=== PATIENT | male | born 1980 | race Caucasian/White ===

== ENCOUNTER 2016-12-07 19:38 | Emergency (ER) | payer BC ==
[~2016-12-07] VITALS: Ht 182.9 cm; Wt 65.0 kg
[2016-12-07 19:39] VITALS: BP 137/93; PULSE 131; RESP 18; TEMP 99.2; O2SAT 96
--- NOTE | 2016-12-07 20:28 | PD ---
Physical Exam Date Seen by Provider: Dec 07, 2016 Time Seen by Provider: 20:26 Data Data Last Documented VS Vital Signs Date Time Temp Pulse Resp B/P Pulse Ox O2 Delivery O2 Flow Rate FiO2 12/07/16 19:39 99.2 131 18 137/93 96 Room Air [facility] Supervised Visit with ADALID: No Narrative Course 36 YO M requesting voluntary psych evaluation. Denies SI. Vitals reviewed. Awaiting bed placement. Myesha Chen Dec 07, 2016 20:28
[2016-12-07 20:54] VITALS: BP 132/89; PULSE 117; RESP 15; O2SAT 96
[2016-12-07] MEDS ORDERED: SODIUM CHLOR 0.9% 1000 ML INJ 1,000 ML IV ONE (21:00)
[2016-12-07] MEDS ORDERED: LORazepam 2 MG/ML VIAL IV ONE (21:00)
[2016-12-07 21:36] LABS: AUTOMATED NEUTROPHIL # 8.8 TH/MM3 (1.8-7.7); BASOPHIL # 0.1 TH/MM3 (0-0.2); BASOPHIL % 0.7 % (0.0-2.0); EOSINOPHIL # 0.2 TH/MM3 (0-0.4); EOSINOPHIL % 1.2 % (0.0-4.0); HEMATOCRIT 48.5 % (39.0-51.0); LYMPH % 22.6 % (9.0-44.0); LYMPHOCYTE # 2.8 TH/MM3 (1.0-4.8); MEAN CELL VOLUME 101.5 FL (80.0-100.0); MEAN CORPUSCULAR HEMOGLOBIN 35.3 PG (27.0-34.0); MEAN CORPUSCULAR HGB CONC 34.8 % (32.0-36.0); MONO % 4.6 % (0.0-8.0); NEUT % 70.9 % (16.0-70.0); PLATELET COUNT 291 TH/MM3 (150-450); RED BLOOD COUNT 4.77 MIL/MM3 (4.50-5.90); RED CELL DISTRIBUTION WIDTH 12.3 % (11.6-17.2); WHITE BLOOD COUNT 12.5 TH/MM3 (4.0-11.0)
[2016-12-07 21:46] LABS: HEMO FLAGS DIFF FINAL
[2016-12-07 21:49] LABS: ALT (GPT) 48 U/L (12-78); ANION GAP 9 MEQ/L (5-15); AST (GOT) 48 U/L (15-37); BICARBONATE 25.4 MEQ/L (21.0-32.0); BLOOD UREA NITROGEN 12 MG/DL (7-18); CHLORIDE 104 MEQ/L (98-107); GLOMERULAR FILTRATION RATE 80 ML/MIN (>89); SODIUM (NA) 138 MEQ/L (136-145)
[2016-12-07 21:50] LABS: POTASSIUM 4.6 MEQ/L (3.5-5.1)
[2016-12-07 21:51] LABS: ALKALINE PHOSPHATASE 91 U/L (45-117)
--- NOTE | 2016-12-07 22:09 | PD ---
HPI Chief Complaint: Psychiatric Symptoms Time Seen by Provider: 20:48 Travel History International Travel<30 days: No Contact w/Intl Traveler<30days: No Traveled to known affect area: No History of Present Illness HPI Patient is a 36-year-old male brought in by his friends because they are worried he is going to kill himself. He states he has been drinking heavily for the past few years. He says he has been depressed for the past 13 years. He says he does want to kill himself. He told the nurse he has a gun at home and he will kill himself. He has no medical complaints at this time. [facility] Past Medical History Medical History: Denies Significant Hx ?: Not Past Surgical History Surgical History: No Previous Surgery Social History Alcohol Use: Yes Tobacco Use: Yes Substance Use: No Allergies-Medications (Allergen,Severity, Reaction): Coded Allergies: Amoxicillin (Verified Allergy, Unknown, 12/07/16) Erythromycin (Verified Allergy, Unknown, 12/07/16) Penicillin (Verified Allergy, Unknown, 12/07/16) Sulfa (Verified Allergy, Unknown, 12/07/16) Reported Meds & Prescriptions Reported Meds & Active Scripts Active No Active Prescriptions or Reported Medications Review of Systems Except as stated in HPI: all other systems reviewed are Neg General / Constitutional: No: Fever, Chills HENT: No: Headaches, Lightheadedness Cardiovascular: No: Chest Pain or Discomfort Respiratory: No: Shortness of Breath Gastrointestinal: No: Nausea, Vomiting, Abdominal Pain Musculoskeletal: No: Myalgias Skin: No Rash, No Change in Pigmentation Neurologic: No: Weakness, Dizziness Physical Exam Narrative GENERAL: Awake and alert, in no acute distress. SKIN: Focused skin assessment warm/dry. HEAD: Atraumatic. Normocephalic. EYES: Pupils equal and round. No scleral icterus. ENT: No nasal bleeding or discharge. Mucous membranes pink and moist. NECK: Trachea midline. No JVD. CARDIOVASCULAR: Regular rate and rhythm. No murmur appreciated. RESPIRATORY: No accessory muscle use. Clear to auscultation. Breath sounds equal bilaterally. GASTROINTESTINAL: Abdomen soft, non-tender, nondistended. MUSCULOSKELETAL: No obvious deformities. No clubbing. No cyanosis. No edema. NEUROLOGICAL: Awake and alert. No obvious cranial nerve deficits. Motor grossly within normal limits. Normal speech. PSYCHIATRIC: Appropriate mood and affect; insight and judgment normal. Data Data Last Documented VS Vital Signs Date Time Temp Pulse Resp B/P Pulse Ox O2 Delivery O2 Flow Rate FiO2 12/07/16 20:54 117 15 132/89 96 Room Air 12/07/16 19:39 99.2 Orders Complete Blood Count With Diff (12/07/16 20:55) Comprehensive Metabolic Panel (12/07/16 20:55) Iv Access Insert/Monitor (12/07/16 20:55) Psych Screen (12/07/16 20:55) Lorazepam Inj (Ativan Inj) (12/07/16 21:00) Drug Screen, Random Urine (12/07/16 20:55) Alcohol (Ethanol) (12/07/16 20:55) Sodium Chlor 0.9% 1000 Ml Inj (Ns 1000 M (12/07/16 21:00) Labs Laboratory Tests Test 12/07/16 21:15 White Blood Count 12.5 TH/MM3 Red Blood Count 4.77 MIL/MM3 Hemoglobin 16.8 GM/DL Hematocrit 48.5 % Mean Corpuscular Volume 101.5 FL Mean Corpuscular Hemoglobin 35.3 PG Mean Corpuscular Hemoglobin 34.8 % Concent Red Cell Distribution Width 12.3 % Platelet Count 291 TH/MM3 Mean Platelet Volume 7.6 FL Neutrophils (%) (Auto) 70.9 % Lymphocytes (%) (Auto) 22.6 % Monocytes (%) (Auto) 4.6 % Eosinophils (%) (Auto) 1.2 % Basophils (%) (Auto) 0.7 % Neutrophils # (Auto) 8.8 TH/MM3 Lymphocytes # (Auto) 2.8 TH/MM3 Monocytes # (Auto) 0.6 TH/MM3 Eosinophils # (Auto) 0.2 TH/MM3 Basophils # (Auto) 0.1 TH/MM3 CBC Comment DIFF FINAL Differential Comment Sodium Level 138 MEQ/L Potassium Level 4.6 MEQ/L Chloride Level 104 MEQ/L Carbon Dioxide Level 25.4 MEQ/L Anion Gap 9 MEQ/L Blood Urea Nitrogen 12 MG/DL Creatinine 1.05 MG/DL Estimat Glomerular Filtration 80 ML/MIN Rate Random Glucose 88 MG/DL Calcium Level 8.5 MG/DL Total Bilirubin 2.0 MG/DL Aspartate Amino Transf 48 U/L (AST/SGOT) Alanine Aminotransferase 48 U/L (ALT/SGPT) Alkaline Phosphatase 91 U/L Total Protein 7.5 GM/DL Albumin 4.3 GM/DL Ethyl Alcohol Level 213 MG/DL [facility] Medical Decision Making Medical Screen Exam Complete: Yes Emergency Medical Condition: Yes Differential Diagnosis Alcohol intoxication versus depression versus psychosis Narrative Course Patient is a 36-year-old male brought in by his friend because they are worried he will try to kill himself. Patient does admit to suicidal thoughts. He is a chronic alcoholic, he last drank earlier today. He has no signs of withdrawal. Exam shows no acute abnormalities. Patient has no medical complaints. Patient placed under Edwards act after he told the nurse he has a gun and wants to kill himself. Labs do show an elevated total bilirubin of 2.0. He has no abdominal pain on exam. This is very likely due to his alcoholism. Patient will be medically cleared for psychiatric evaluation. Diagnosis Primary Impression: Depression Qualified Code: F32.9 - Depression, unspecified depression type Scripts No Active Prescriptions or Reported Meds Condition: Fiona James MD Dec 07, 2016 22:09
[2016-12-07] MEDS ORDERED: LORazepam 2 MG TAB PO PRN (22:15)
[2016-12-07] MEDS ORDERED: LORazepam 1 MG TAB PO PRN (22:15)
[2016-12-07] MEDS ORDERED: LORazepam 2 MG/ML VIAL IV PUSH PRN ×4 (22:15)
[2016-12-07] MEDS ORDERED: FLUMAZENIL 0.5 MG/5 ML VIAL IV PUSH PRN (22:15)
[2016-12-07 22:23] LABS: AMPHETAMINE, URINE NEG (NEG); BARBITURATES, URINE NEG (NEG); COCAINE, URINE NEG (NEG)
[2016-12-08 07:17] VITALS: BP 129/71; PULSE 97; RESP 18; TEMP 98.5; O2SAT 96
[2016-12-08 11:30] VITALS: BP 122/77; PULSE 83; RESP 16; TEMP 97.7; O2SAT 96
[2016-12-08] MEDS ORDERED: PROZ20CA11 PO (17:43)
== END 2016-12-08 15:03 ==
LOC: NEPD 19:38
DX: F32.9 Major depressive disorder, single episode, unspecified (principal); Z72.0 Tobacco use
CPT/HCPCS: 80053; 80307; 85025; 96361; 96374; 99284; J2060; J7030

== ENCOUNTER 2016-12-08 15:38 | Emergency (ER) | payer BC ==
--- NOTE | 2016-12-08 15:56 | PD ---
HPI Chief Complaint: Psychiatric Symptoms Time Seen by Provider: 15:52 Travel History International Travel<30 days: No Contact w/Intl Traveler<30days: No Traveled to known affect area: No History of Present Illness HPI 36-year-old male presents the emergency department via EMS, after an attempted transfer from here to [facility], with the patient was refused. Patient currently has no complaints of a medical or psychiatric issue. Patient was medically stable at time of transfer. He states nothing is changed. He is allergic to amoxicillin, erythromycin, penicillin, and sulfa. [facility] Social History Alcohol Use: Yes Tobacco Use: Yes Substance Use: Yes Allergies-Medications (Allergen,Severity, Reaction): Coded Allergies: Amoxicillin (Verified Allergy, Unknown, 12/07/16) Erythromycin (Verified Allergy, Unknown, 12/07/16) Penicillin (Verified Allergy, Unknown, 12/07/16) Sulfa (Verified Allergy, Unknown, 12/07/16) Reported Meds & Prescriptions Reported Meds & Active Scripts Active No Active Prescriptions or Reported Medications Review of Systems Except as stated in HPI: all other systems reviewed are Neg General / Constitutional: No: Fever Eyes: No: Visual changes HENT: No: Headaches Cardiovascular: No: Chest Pain or Discomfort Respiratory: No: Shortness of Breath Gastrointestinal: No: Abdominal Pain Genitourinary: No: Dysuria Musculoskeletal: No: Pain Skin: No Rash Neurologic: No: Weakness Psychiatric: No: Depression Endocrine: No: Polydipsia Hematologic/Lymphatic: No: Easy Bruising Physical Exam Narrative GENERAL: Patient appears in no acute distress. SKIN: Warm and dry. Normal color. Normal turgor. HEAD: Atraumatic. Normocephalic. EYES: Pupils equal and round. No scleral icterus. No injection or drainage. ENT: No nasal bleeding or discharge. Mucous membranes pink and moist. NECK: Trachea midline. Supple and nontender. CARDIOVASCULAR: Regular rate and rhythm. RESPIRATORY: No accessory muscle use. Clear to auscultation. Breath sounds equal bilaterally. GASTROINTESTINAL: Abdomen soft, non-tender, nondistended. Hepatic and splenic margins not palpable. MUSCULOSKELETAL: Extremities without clubbing, cyanosis, or edema. No obvious deformities. NEUROLOGICAL: Awake and alert. No obvious cranial nerve deficits. Motor grossly within normal limits. Five out of 5 muscle strength in the arms and legs. Normal speech. PSYCHIATRIC: Appropriate mood and affect; insight and judgment normal. MDM Medical Decision Making Medical Screen Exam Complete: Yes Emergency Medical Condition: Yes Differential Diagnosis Psychiatric issues. Substance abuse. Need for detox. Narrative Course Patient is medically stable at time of exam. Repeat labs or not felt warranted at this time. Patient is cleared for psychiatric evaluation. Diagnosis Primary Impression: Medical clearance for psychiatric admission Scripts No Active Prescriptions or Reported Meds Condition: Stable Madan Benedict Dec 08, 2016 15:56
[2016-12-08 16:06] VITALS: BP 141/100; PULSE 100; RESP 18; TEMP 98.1; O2SAT 96
[2016-12-08] MEDS ORDERED: NICOTINE 14 MG/24 HR PATCH T-DERMAL ONE (16:15)
[2016-12-08] MEDS ORDERED: PROZ20CA11 PO (17:43)
--- NOTE | 2016-12-09 10:06 | PD ---
History of Present Illness Chief Complaint: Psychiatric Symptoms Time Seen by Provider: 17:00 Travel History International Travel<30 Days: No Contact w/Intl Traveler<30days: No Known affected area: No Legal Status Legal Status: Edwards Act History of Present Illness: Patient was seen by this physician because he was turned down by [facility]. Apparently he has a history of Marfan's syndrome. Patient is calm, pleasant and cooperative. He denies any suicidal or homicidal ideation, plan or intent. He denies any psychotic symptoms and his cognition is intact. He is verbally wilbert for safety. He would like to return home and he is competent to do so. PFSH Past Medical History Medical History: Denies Significant Hx Psychiatric History Psychiatric History Hx Psychiatric Treatment: Denies a history of psychiatric treatment. History of Inpatient Treatment: No Social History Hx Alcohol Use: Yes Hx Tobacco Use: Yes Hx Substance Use: Yes Substance Use Type: Alcohol Hx of Substance Use Treatment: Yes Allergies-Medications (Allergen,Severity, Reaction): Coded Allergies: Amoxicillin (Verified Allergy, Unknown, 12/07/16) Erythromycin (Verified Allergy, Unknown, 12/07/16) Penicillin (Verified Allergy, Unknown, 12/07/16) Sulfa (Verified Allergy, Unknown, 12/07/16) Reported Meds & Prescriptions Reported Meds & Active Scripts Active Prozac (Fluoxetine HCl) 20 Mg Cap 20 Mg PO DAILY Review of Systems Except as stated in HPI: all other systems reviewed are Neg Exam Alert: Yes [place]: Person, Place, Date, Situation Mood: Calm Affect: Appropriate Speech: Clear Eye Contact: Normal Memory Intact: Immediate, Recent, Remote Insight/Judgement Adequate [facility] Medical Decision Making Medical Record Reviewed: Yes Assessment/Plan Patient's Edwards act is being lifted and he is being discharged home. He is denying suicidal or homicidal ideation, plan or intent. He is not intoxicated with alcohol or illicit substances at this time. His cognition is completely intact without psychotic symptoms and he is wilbert for safety. Orders Nicotine 14 Mg Patch.24 Hr (Habitrol 14 (12/08/16 16:15) Results Vital Signs Date Time Temp Pulse Resp B/P Pulse Ox O2 Delivery O2 Flow Rate FiO2 12/08/16 16:06 98.1 100 18 141/100 96 Diagnosis Primary Impression: Adjustment disorder with mixed disturbance of emotions and conduct Referrals: [facility] (Out patient) call for appointment Departure Forms: Tests/Procedures Patient Instructions: General Instructions, Stress (ED) Prescriptions Fluoxetine (Prozac)20 Mg Cap20 Mg PO DAILY #30 CAP Ref 0 Prov:Johnny Workman MD 12/08/16 Disposition: 01 DISCHARGE HOME Condition: Stable Johnny Workman MD Dec 09, 2016 10:06
== END 2016-12-08 18:10 | disposition home or self-care (01) ==
LOC: NEPJ 15:38
DX: F43.25 Adjustment disorder with mixed disturbance of emotions and conduct (principal)
CPT/HCPCS: 99283